=== PATIENT | male | born 1990 | race Caucasian/White ===

== ENCOUNTER 2020-09-24 23:24 | Inpatient (IN) | payer MEDICAID, OTHER ==
[~2020-09-24] VITALS: Ht 180.3 cm; Wt 124.8 kg
[2020-09-24 23:51] LABS: BASOPHILS % (AUTO) 1 % (0-1); EOSINOPHILS % (AUTO) 3 % (1-7); LYMPHOCYTES % (AUTO) 21 % (22-44); MEAN CORPUSCULAR HEMOGLOBIN 21.8 pg (27.5-34.5); MEAN CORPUSCULAR HGB CONC 31.1 g/dL (33.2-36.2); MEAN PLATELET VOLUME 8.2 fL (7.4-10.4); MONOCYTES % (AUTO) 6 % (2-9); NEUTROPHILS % (AUTO) 70 % (42-75); PLATELET COUNT 323 x10^3/uL (130-400); RED CELL DISTRIBUTION WIDTH 23.1 % (9.4-14.8)
--- NOTE | 2020-09-24 23:58 | NUR ---
Note undone in EDM - 09/25/20 at 0027 by TSHUTES pt to ed for sob. 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 pt states hes smoked meth the last 2 days. pt is poor historian, states hes had a stroke in the past & was put on lasik and other meds, but they were changed around & he didnt like the way they made him feel so he stopped taking them, and he ran out 1 week ago. pt has crackes in b/l bases. +2 to b/l lwr ext. pt on monitors, ekg completed. pt denies any cp. pt 89% on ra, placed on 2L nc, increased to 93%. requesting records from [facility], where pt was admitted derek vieyra s/s in may. phleb & xray at bs. call light [facility]. will ctm. pt denies having covid vacc, states he was +in nov.
[2020-09-25 00:01] LABS: ALBUMIN 3.3 g/dL (3.4-5.0); ANION GAP 10 mmol/L (5-15); CALCIUM 8.9 mg/dL (8.5-10.1); CHLORIDE 109 mmol/L (98-107); CREATININE 1.17 mg/dL (0.7-1.3)
[2020-09-25 00:05] LABS: TROPONIN I 0.033 ng/mL (0.000-0.045)
[2020-09-25 00:17] LABS: ANISOCYTOSIS 1+; ECHINOCYTES 1+; HYPOCHROMIA 1+; MICROCYTOSIS 1+; OVALOCYTES 1+; TARGET CELLS 1+
[2020-09-25 00:18] LABS: <PLATELET ESTIMATE> ADEQUATE; <PLT MORPHOLOGY> NORMAL PLT MORPH; POLYCHROMASIA 1+
--- NOTE | 2020-09-25 00:20 | NUR ---
pt to ed for sob. 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 pt states hes smoked meth the last 2 days. pt states hes had a stroke in the past (06/20/2019) & was admitted to [facility] in may for similiar s/s, was put on lasix and other meds, but they were changed around recently & he didnt like the way they made him feel & he ran out 1 week ago. pt has crackes in b/l bases. +2 to b/l lwr ext. pt on monitors, ekg completed. pt denies any cp. pt 89% on ra, placed on 2L nc, increased to 93%. requesting records from [facility]. phleb & xray at bs. call light [facility]. will ctm. pt denies having covid vacc, states he was +in feb. pt also states he recently moved to [place] from [facility] ~1month ago.
[2020-09-25] MEDS ORDERED: FUROSEMIDE 40 MG/4 ML ONE (00:28)
[2020-09-25] MEDS ORDERED: FUROSEMIDE 40 MG/4 ML IV ONE (00:30)
[2020-09-25] MEDS ORDERED: GUAIFENESIN/DM 200-20MG, 10ML UDC PO PRN (01:00)
[2020-09-25] MEDS ORDERED: ENALAPRILAT 1.25 MG/ML, 2ML IVPush PRN (01:00)
[2020-09-25] MEDS ORDERED: DOCUSATE 100 MG CAPSULE PO PRN (01:00)
[2020-09-25] MEDS ORDERED: ENOXAPARIN 40 MG/0.4 ML SQ SCH (01:00)
[2020-09-25] MEDS ORDERED: ACETAMINOPHEN 325 MG TABLET PO PRN (01:00)
[2020-09-25] MEDS ORDERED: ONDANSETRON 2MG/ML, 2ML IVPush PRN (01:00)
[2020-09-25] MEDS ORDERED: BACLOFEN 10 MG TABLET PO PRN (01:00)
[2020-09-25] MEDS ORDERED: ZOLPIDEM 5MG TABLET PO PRN (01:00)
[2020-09-25 01:49] VITALS: BP 115/73
[2020-09-25 07:09] VITALS: BP 122/85
[2020-09-25 08:35] VITALS: BP 136/93
[2020-09-25] MEDS: SPIRONOLACTONE 25 MG TABLET PO SCH (08:36)
[2020-09-25] MEDS: FUROSEMIDE 40 MG/4 ML IV SCH ×2 (08:36→17:36)
[2020-09-25 13:26] VITALS: BP 120/80
[2020-09-25 17:35] VITALS: BP 117/72
[2020-09-25 20:39] VITALS: BP 137/86
[2020-09-25] MEDS: ENOXAPARIN 30 MG/0.3 ML SQ SCH (20:41)
[2020-09-26 01:25] VITALS: BP 120/84
[2020-09-26 04:52] LABS: BASOPHILS % (AUTO) 1 % (0-1); EOSINOPHILS % (AUTO) 6 % (1-7); LYMPHOCYTES % (AUTO) 22 % (22-44); MEAN CORPUSCULAR HEMOGLOBIN 21.9 pg (27.5-34.5); MEAN CORPUSCULAR HGB CONC 30.9 g/dL (33.2-36.2); MEAN PLATELET VOLUME 8.4 fL (7.4-10.4); MONOCYTES % (AUTO) 7 % (2-9); NEUTROPHILS % (AUTO) 63 % (42-75); PLATELET COUNT 328 x10^3/uL (130-400); RED BLOOD COUNT 5.03 x10^6/uL (4.38-5.82); RED CELL DISTRIBUTION WIDTH 22.6 % (9.4-14.8)
[2020-09-26 05:05] LABS: ANION GAP 6 mmol/L (5-15); CALCIUM 8.5 mg/dL (8.5-10.1); CHLORIDE 108 mmol/L (98-107)
[2020-09-26 05:18] LABS: % IRON SATURATION 6 % (20-55); CREATININE 1.02 mg/dL (0.7-1.3); IRON LEVEL 24 mcg/dL (65-175); TOTAL IRON BINDING CAPACITY 381 mcg/dL (250-450)
[2020-09-26 07:38] VITALS: BP 126/75
[2020-09-26] MEDS: FUROSEMIDE 40 MG/4 ML IV SCH ×2 (08:47→18:02)
[2020-09-26] MEDS: SPIRONOLACTONE 25 MG TABLET PO SCH (08:48)
[2020-09-26] MEDS: ENOXAPARIN 30 MG/0.3 ML SQ SCH ×2 (08:49→21:24)
[2020-09-26] MEDS ORDERED: POTASSIUM CHLORIDE 20 MEQ TAB.ER.PRT PO ONE (10:30)
[2020-09-26] MEDS: LISINOPRIL 5 MG TABLET PO SCH (12:22)
[2020-09-26 12:28] VITALS: BP 142/85
[2020-09-26] MEDS: METOPROLOL TARTRATE 25 MG TAB PO SCH (18:03)
[2020-09-26 18:48] VITALS: BP 117/80
[2020-09-26] MEDS ORDERED: ATORVASTATIN 40 MG TABLET PO SCH (21:00)
[2020-09-26] MEDS ORDERED: MELATONIN 5 MG TABLET PO PRN (22:00)
[2020-09-27 01:28] VITALS: BP 100/77
[2020-09-27 05:28] LABS: ANION GAP 9 mmol/L (5-15); CALCIUM 9.3 mg/dL (8.5-10.1); CHLORIDE 106 mmol/L (98-107); CREATININE 1.02 mg/dL (0.7-1.3)
[2020-09-27 06:04] VITALS: BP 124/79
[2020-09-27] MEDS: FUROSEMIDE 40 MG/4 ML IV SCH (06:06)
[2020-09-27] MEDS: METOPROLOL TARTRATE 25 MG TAB PO SCH (06:06)
[2020-09-27 07:46] VITALS: BP 121/81
[2020-09-27] MEDS ORDERED: POTASSIUM CHLORIDE 20 MEQ TAB.ER.PRT PO SCH (09:00)
[2020-09-27] MEDS ORDERED: LISI5TAB7 PO (09:48)
[2020-09-27] MEDS ORDERED: ATOR40TA78 PO (09:48)
[2020-09-27] MEDS ORDERED: METO25TA35 PO ×2 (09:48)
[2020-09-27] MEDS ORDERED: SPIR25TA PO (09:48)
[2020-09-27] MEDS: SPIRONOLACTONE 25 MG TABLET PO SCH (10:11)
[2020-09-27] MEDS: LISINOPRIL 5 MG TABLET PO SCH (10:11)
[2020-09-27] MEDS: ENOXAPARIN 30 MG/0.3 ML SQ SCH (10:11)
[2020-09-27] MEDS ORDERED: METO25TA91 PO (10:34)
== END 2020-09-27 11:00 | disposition home or self-care (01) | DRG 133 ==
LOC: ED 09-25 00:49 → EDIP 09-25 01:01 → 5SO 09-25 01:36 → DCLOUNGE 09-27 10:58
PROVIDERS: ADMIT Internal Medicine; ATTEND Hospitalist
DX: J96.01 Acute respiratory failure with hypoxia (principal); I50.23 Acute on chronic systolic (congestive) heart failure; I44.2 Atrioventricular block, complete; E87.8 Other disorders of electrolyte and fluid balance, not elsewhere classified; I42.0 Dilated cardiomyopathy; F15.10 Other stimulant abuse, uncomplicated; D50.9 Iron deficiency anemia, unspecified; I34.0 Nonrheumatic mitral (valve) insufficiency; F17.210 Nicotine dependence, cigarettes, uncomplicated; D72.829 Elevated white blood cell count, unspecified; Z86.73 Personal history of transient ischemic attack (TIA), and cerebral infarction without residual deficits; Z83.3 Family history of diabetes mellitus; Z91.14 Patient's other noncompliance with medication regimen; Z72.89 Other problems related to lifestyle
CPT/HCPCS: 36415; 71045; 80048; 82040; 82728; 83540; 83550; 83735; 83880; 84100; 84443; 84484; 85025; 93005; 93306; 93356; 96374; G0378; J1650; J1940

== ENCOUNTER 2020-10-02 05:31 | Emergency (ER) | payer MEDICAID ==
[~2020-10-02] VITALS: Ht 182.9 cm; Wt 130.4 kg
[~2020-10-02 05:31] MED LIST: ATOR40TA78 PO; LISI5TAB7 PO; METO25TA35 PO; METO25TA91 PO; SPIR25TA PO
--- NOTE | 2020-10-02 05:48 | NUR ---
PT PRESENTS TO ER FOR SOB AND CHEST PAIN, PT STATED THAT HE SMOKED METH YESTERDAY AROUND NOON AND THEN A FEW HOURS LATER STARTED TO FEEL SOB AND CHEST PAIN, PT A/OX4, ALL NEEDS IN REACH, CALL LIGHT IN REACH
[2020-10-02] MEDS ORDERED: METOPROLOL TARTRATE 25 MG TAB PO ONE (06:00)
[2020-10-02] MEDS ORDERED: FUROSEMIDE 40 MG TABLET ONE (06:18)
[2020-10-02] MEDS ORDERED: METOPROLOL TARTRATE 25 MG TAB ONE (06:18)
[2020-10-02] MEDS ORDERED: LORazepam 1MG TABLET ONE (06:19)
[2020-10-02] MEDS ORDERED: FUROSEMIDE 40 MG TABLET PO ONE (06:30)
[2020-10-02] MEDS ORDERED: LORazepam 1MG TABLET PO ONE (06:30)
[2020-10-02 06:37] LABS: BASOPHILS % (AUTO) 1 % (0-1); EOSINOPHILS % (AUTO) 3 % (1-7); LYMPHOCYTES % (AUTO) 22 % (22-44); MEAN CORPUSCULAR HGB CONC 30.9 g/dL (33.2-36.2); MEAN PLATELET VOLUME 8.2 fL (7.4-10.4); MONOCYTES % (AUTO) 6 % (2-9); NEUTROPHILS % (AUTO) 68 % (42-75); PLATELET COUNT 343 x10^3/uL (130-400); RED BLOOD COUNT 5.12 x10^6/uL (4.38-5.82); RED CELL DISTRIBUTION WIDTH 23.5 % (9.4-14.8)
[2020-10-02 06:47] LABS: ANION GAP 8 mmol/L (5-15); CALCIUM 9.1 mg/dL (8.5-10.1); CHLORIDE 106 mmol/L (98-107); CREATININE 1.06 mg/dL (0.7-1.3)
[2020-10-02 07:07] LABS: <PLATELET ESTIMATE> ADEQUATE; <PLT MORPHOLOGY> NORMAL PLT MORPH; ANISOCYTOSIS 1+; ECHINOCYTES 1+; HYPOCHROMIA 1+; MICROCYTOSIS 1+; OVALOCYTES 1+; POLYCHROMASIA 1+
[2020-10-02 07:18] VITALS: BP 119/71
--- NOTE | 2020-10-02 07:49 | NUR ---
Patient given discharge instructions and they have confirmed that they understand the instructions. Patient ambulatory with steady gait.
== END 2020-10-02 07:51 | disposition home or self-care (01) ==
LOC: ED 06:16
DX: R06.00 Dyspnea, unspecified (principal); I42.9 Cardiomyopathy, unspecified; F15.10 Other stimulant abuse, uncomplicated; Z72.9 Problem related to lifestyle, unspecified; R00.0 Tachycardia, unspecified; F17.200 Nicotine dependence, unspecified, uncomplicated; Z86.73 Personal history of transient ischemic attack (TIA), and cerebral infarction without residual deficits
CPT/HCPCS: 36415; 71045; 80048; 85025; 93005; 99285